=== PATIENT | female | born 1965 | race African-American/Black ===

== ENCOUNTER 2016-09-11 21:18 | Emergency (ER) | payer MEDICAID, OTHER ==
[~2016-09-11] VITALS: Ht 170.2 cm; Wt 122.5 kg
[~2016-09-11 21:18] MED LIST: IBUPROFEN600 MG ORAL; LISINOPRIL10 MG ORAL; NORCO 5-325 TA1 EACH ORAL; VALIUM10 MG ORAL
[2016-09-11 21:45] VITALS: BP 135/89
--- NOTE | 2016-09-11 21:54 | Emergency Room Report ---
History of Present Illness General Chief Complaint: Lower Extremity Injury Source: Patient Present Illness HPI Patient is a 51-year-old female presented after having a fall. Patient reported having increased pain to her right knee as well as her right leg and right ankle. Patient reported having increased swelling. She had been having difficulty ambulating. Patient been using crutches since the fall. Fall occurred approximate 4 days ago. Allergies: Coded Allergies: SULFA (SULFONAMIDE ANTIBIOTICS) (Unverified Allergy, Unknown, 08/10/13) Patient History Past Medical History: see triage record Reviewed Nursing Documentation: PMH: Agreed, PSxH: Agreed Nursing Documentation-PMH Hx Hypertension: Yes Hx Asthma: Yes Review of Systems All Other Systems: negative except mentioned in HPI Physical Exam Vital Signs Date Time Temp Pulse Resp B/P Pulse Ox O2 Delivery O2 Flow Rate FiO2 09/11/16 21:35 98.4 97 18 137/95 96 Room Air General Appearance: well appearing, no apparent distress, alert, GCS 15, non- toxic Head: normocephalic, atraumatic ENT: hearing grossly normal, normal voice Neck: full range of motion, supple Respiratory: no respiratory distress, speaking full sentences Cardiovascular #1: normal inspection, regular rate, rhythm Musculoskeletal: no calf tenderness, other - swelling to right foot Neurologic: normal inspection, alert, oriented x3, responsive, capacitor repairer III-XII nml as tested, normal gait Psychiatric: mood/affect normal Skin: no rash Medical Decision Making Diagnostic Impression: Primary Impression: Injury of lower extremity Additional Impression: Foot fracture, right ER Course Patient presented for extremity pain. Differential diagnosis included but was not limited to fracture, contusion, renal stone, vascular insufficiency, aortic aneurysm, cellulitis. X-ray imaging of the right knee and right tib-fib and right ankle were ordered due to the patient's locations of pain.X-ray imaging of the right knee 3 views interpreted by me showed degenerative changes without evident fracture. X-ray of the tib-fib 3 views interpreted by me showed osteopenia without evident fracture or dislocation. X-ray of the right foot 3 views interpreted by me showed avulsion fractures to the lateral aspect of the foot likely from the cuboid. Patient was placed in posterior splint. She is advised followup with her primary care physician for orthopedic referral. Last Vital Signs Date Time Temp Pulse Resp B/P Pulse Ox O2 Delivery O2 Flow Rate FiO2 09/11/16 21:35 98.4 97 18 137/95 96 Room Air Status: improved Disposition: HOME, SELF-CARE Condition: Stable Scripts Ibuprofen* (MOTRIN*) 600 Mg Tablet 600 MG ORAL Q8H Y for For Pain, #30 TAB Prov: Michael Martinez 09/11/16 Hydrocodone Bit/Acetaminophen 5-325* (NORCO 5-325*) 1 Each Tablet 1 TAB ORAL Q6H Y for For Pain, #20 TAB Prov: Michael Martinez 09/11/16 Michael Martinez Sep 11, 2016 21:54
[2016-09-11] MEDS ORDERED: NORCO 5-325 TA1 EACH ORAL (22:54)
[2016-09-11] MEDS ORDERED: IBUPROFEN600 MG ORAL (22:54)
[2016-09-11 23:00] VITALS: BP 130/88
[2016-09-11] MEDS ORDERED: Lidocaine 1% MPF 10mg/ml 5ml IM ONE (23:15)
[2016-09-12 00:05] VITALS: BP 135/79
--- NOTE | 2016-09-12 10:30 | Diagnostic Imaging Report ---
Indication: PAIN Technique: 3 views of the right knee Comparison: None Findings:No acute fractures. No dislocations. There are medial and lateral and patellofemoral osteophytes. Joint spaces are preserved. No suprapatellar effusion. Impression:Mild degenerative changes. No acute bony trauma
--- NOTE | 2016-09-12 11:57 | Diagnostic Imaging Report ---
Indication: PAIN Technique: 2 views of the right tibia and fibula Comparison: none Findings: No acute fractures. No dislocations. The joint spaces are preserved. No radiopaque foreign body. There is a plantar spur incidentally noted Impression: Negative This agrees with the preliminary interpretation provided by the emergency room physician
--- NOTE | 2016-09-12 11:57 | Diagnostic Imaging Report ---
Indication: PAIN Technique: 3 views right foot Comparison: none Findings: Small irregular osseous density projects lateral to the cuboid. No definite acute fractures. No dislocations. There is a plantar spur. Impression: Small irregular osseous density lateral to the cuboid, probably physiologic, small avulsion fracture not completely excludable No acute process otherwise. Other findings as noted This agrees with the preliminary interpretation provided by the emergency room physician
== END 2016-09-12 00:10 | disposition home or self-care (01) ==
LOC: EMR 22:10
DX: S89.91XA Unspecified injury of right lower leg, initial encounter (principal); S92.811A Other fracture of right foot, initial encounter for closed fracture; W19.XXXA Unspecified fall, initial encounter; Y92.89 Other specified places as the place of occurrence of the external cause; Z88.2 Allergy status to sulfonamides; J45.909 Unspecified asthma, uncomplicated; I10 Essential (primary) hypertension
CPT/HCPCS: 29125; 29515; 99284

== ENCOUNTER 2018-11-05 23:14 | Emergency (ER) | payer OTHER ==
[~2018-11-05] VITALS: Ht 170.2 cm; Wt 127.0 kg
[2018-11-05 23:20] VITALS: BP 157/90
--- NOTE | 2018-11-05 23:24 | NUR ---
Note cory in EDM - 11/05/18 at 2332 by MELISSA ED Nurse Note: SCIATICA BACK PAIN RADIATING TO RIGHT LEG FOR PAST 2-3 DAYS, PAIN 10/10 AND MILD BLEEDING IN URINE ALSO.
--- NOTE | 2018-11-05 23:30 | NUR ---
ED Nurse Note: Patient walked into ED c/o low back pain that is a chronic issue however states that this has been a worsening situation today, patient is alert and oriented x4, ambulatory with a steady gait, VSS. patient does report travelling to [place] and drove there, urine collected and sent down to lab
[2018-11-06 00:09] LABS: APPEARANCE,URINE CLEAR; BILIRUBIN, URINE NEGATIVE (NEGATIVE); COLOR,URINE PALE YELLOW; GLUCOSE, URINE (UA) NEGATIVE (NEGATIVE); KETONES,URINE NEGATIVE (NEGATIVE); LEUKOCYTE ESTERASE ,URINE 1+ (NEGATIVE); NITRITE,URINE NEGATIVE (NEGATIVE); PH,URINE 6.5 (4.5-8.0); PROTEIN,URINE 1+ (NEGATIVE); UROBILINOGEN,URINE NORMAL MG/DL (0.0-1.0)
[2018-11-06] MEDS ORDERED: ROBAXIN-500MG ORAL (00:54)
[2018-11-06] MEDS ORDERED: IBUPROFEN600 MG ORAL (00:54)
[2018-11-06] MEDS ORDERED: CEPHALEXIN500 MG ORAL (00:54)
[2018-11-06] MEDS ORDERED: ACETAMINOPHEN325 M1 ORAL (00:54)
[2018-11-06 00:55] VITALS: BP 142/88
--- NOTE | 2018-11-06 00:57 | NUR ---
ER DISCHARGE NOTE: Patient is cleared to be discharged per ERMD, pt is aox4, on room air, with stable vital signs. pt was given dc and prescription instructions, pt was able to verbalize understanding, pt id band removed without complications. pt is able to ambulate with steady gait. pt took all belongings.
--- NOTE | 2018-11-06 01:04 | Emergency Room Report ---
History of Present Illness General Chief Complaint: Back Pain-No Injury Source: Patient Present Illness HPI Disclaimer: Please note that this report is being documented using DRAGON technology. This can lead to erroneous entry secondary to incorrect interpretation by the dictating instrument. HPI: 53-year-old female with a history of hypertension and herniated disc with sciatica presents for evaluation of back pain. Symptoms have been present for some time now and the patient has some element of chronic lower back pain. Over the past week she has had pain radiating from the right side down into the right knee over the back of the right leg. She denies any weakness, saddle anesthesia, urinary retention or fecal incontinence. She does note some right- sided flank pain as well and noticed some hematuria without urgency, frequency or dysuria over the past few days. Denies fevers, vomiting, diarrhea or other symptoms. No recent back injury. No history of spinal surgery. PMH: Hypertension, sciatica PSH: Lateral tubal ligation Allergies: Sulfa medications Social Hx: Denies drug or alcohol abuse Allergies: Coded Allergies: SULFA (SULFONAMIDE ANTIBIOTICS) (Verified Allergy, Unknown, 11/05/18) Patient History Now: No Nursing Documentation-PMH Hx Hypertension: Yes Hx Asthma: Yes Review of Systems All Other Systems: negative except mentioned in HPI Physical Exam Vital Signs Date Time Temp Pulse Resp B/P (MAP) Pulse Ox O2 Delivery O2 Flow Rate FiO2 11/05/18 23:20 98.2 90 18 157/90 98 Room Air General: Awake and alert, no acute distress HEENT: NC/AT. EOMI. Resp: Normal work of breathing. Abdomen: Abdomen is soft, nondistended. Nontender Skin: Intact. No abrasions, laceration or rash over the exposed skin MSK: Normal tone and bulk. Moving all extremities. No obvious deformity. Strength in the lower extremities is 5 x 5 at the hips, knees and ankles. Ambulate in without difficulty. Neuro: Awake and alert. Mentating appropriately. Sensation is intact over the dermatomes of the lower extremities bilaterally. No saddle anesthesia. Back/Spine: No midline tenderness in the cervical, thoracic spine. There is mild midline tenderness in the lumbosacral region without step-off or palpable deformity. There is some right-sided tenderness over the piriformis and superior gluteal. There is also some right-sided CVA tenderness, left negative on left Medical Decision Making Diagnostic Impression: Primary Impression: Urinary tract infection Additional Impression: Sciatic pain ER Course 53-year-old female with a history of sciatica presents for evaluation of worsening back pain with pain radiating to the right leg as well as some CVA tenderness and gross hematuria this evening. Differential includes was not limited to herniated disc, sciatica, lumbosacral strain, muscle spasm, urinary tract infection, pyelonephritis. Urinalysis obtained on arrival shows evidence of acute urinary tract infection and connection with the patient's right-sided flank pain we will treat her for pyelonephritis with 10 days of Keflex. There is no trauma and I do not believe she requires emergent back imaging as she has no red flag symptoms of cauda equina and no risk factors for epidural abscess. Will discharge home with NSAIDs, methocarbamol to treat the lower back pain. Discussed reasons to return to the emergency department and need for follow-up with her PMD next week. She understands and agrees with the treatment plan will be discharged home. Last Vital Signs Date Time Temp Pulse Resp B/P (MAP) Pulse Ox O2 Delivery O2 Flow Rate FiO2 11/05/18 23:24 98.2 95 18 157/90 (112) 95 Room Air Disposition: HOME, SELF-CARE Condition: Stable Scripts Methocarbamol* (ROBAXIN-500*) 500 Mg Tablet 500 MG ORAL TID PRN for For Pain, #20 TAB 0 Refills Prov: Sin Heart MD 11/06/18 Cephalexin* (KEFLEX*) 500 Mg Capsule 500 MG ORAL EVERY 12 HOURS for 10 Days, #20 CAP 0 Refills Prov: Sin Heart MD 11/06/18 Acetaminophen* (ACETAMINOPHEN 325MG TABLET*) 325 Mg Tablet 650 MG ORAL Q6H PRN for For Pain, #40 TAB Prov: Sin Heart MD 11/06/18 Ibuprofen* (MOTRIN*) 600 Mg Tablet 600 MG ORAL Q6HR PRN for For Pain, #30 TAB 0 Refills Prov: Sin Heart MD 11/06/18 Patient Instructions: Urinary Tract Infection Additional Instructions: Your evaluated today for back pain and found to have a urinary tract infection though likely also have a component of sciatica. He will be started on Tylenol and Motrin for the next few days to control your back pain and antibiotic for 10 days to treat the urinary tract infection. He will be called by the emergency department if the antibiotic needs to be changed however if you do not hear otherwise please take the entire course as instructed. Follow-up with your primary doctor in the next week to discuss this emergency department visit and for reevaluation. Return to the emergency department any new or worsening symptoms including but not limited to leg weakness, numbness or tingling in the legs, inability to pass urine, high fevers or other changes in your health Sin Heart MD Nov 06, 2018 01:04
== END 2018-11-06 00:55 | disposition home or self-care (01) ==
LOC: EMR 23:45
DX: N39.0 Urinary tract infection, site not specified (principal); M54.41 Lumbago with sciatica, right side; I10 Essential (primary) hypertension; Z88.2 Allergy status to sulfonamides; J45.909 Unspecified asthma, uncomplicated
CPT/HCPCS: 81003; 87086; Z7502; 99283